=== PATIENT | male | born 1955 | race African-American/Black ===

== ENCOUNTER 2020-08-10 13:30 | Emergency (ER) | payer OTHER ==
[~2020-08-10] VITALS: Ht 198.1 cm; Wt 163.3 kg
[2020-08-10] MEDS ORDERED: INDOMETHACIN 2525 MG PO ×4 (16:01→16:15)
[2020-08-10] MEDS ORDERED: MITIGARE0.6 MG PO ×3 (16:01→16:15)
[2020-08-10] MEDS ORDERED: NORCO 10-325 T1 EACH PO ×4 (16:01→16:15)
[2020-08-10] MEDS ORDERED: COLCHICINE0.6 M1 PO (16:13)
[2020-08-10 16:18] VITALS: BP 146/89
== END 2020-08-10 16:18 | disposition home or self-care (01) ==
LOC: ER 13:30
DX: M79.671 Pain in right foot (principal); M10.9 Gout, unspecified; Z79.899 Other long term (current) drug therapy